=== PATIENT | male | born 1990 | race Caucasian/White ===

== ENCOUNTER 2019-03-18 00:59 | Emergency (ER) | payer OTHER ==
[~2019-03-18] VITALS: Ht 175.3 cm; Wt 88.5 kg
[~2019-03-18 00:59] MED LIST: DIAZ5 PO; IBUP600 PO; OXYACE5T PO
[2019-03-18] MEDS ORDERED: Percocet 7.5-31 EACH PO (08:29)
[2019-03-18] MEDS ORDERED: CEPH500 PO (08:29)
== END 2019-03-18 08:35 | disposition home or self-care (01) ==
LOC: ER 00:59
DX: S68.625A Partial traumatic transphalangeal amputation of left ring finger, initial encounter (principal); W23.0XXA Caught, crushed, jammed, or pinched between moving objects, initial encounter; Z88.2 Allergy status to sulfonamides; Z88.1 Allergy status to other antibiotic agents; F17.210 Nicotine dependence, cigarettes, uncomplicated
CPT/HCPCS: 11012; 11750; 73130; 90471; 90714; 96372-59; 99283-25; J0690